=== PATIENT | female | born 1940 | race Caucasian/White ===

== ENCOUNTER 2024-06-12 10:47 | Emergency (ER) | payer OTHER, SELFPAY ==
[2024-06-12 11:06] VITALS: BP 115/69; PULSE 96; RESP 14; TEMP 36.3; O2SAT 95; BMI 35.2
--- NOTE | 2024-06-12 11:14 | DI.US.S_ITS ---
PROCEDURE: US PELVIC COMPLETE INDICATIONS: post menopause bleeding TECHNIQUE: Real-time scanning was performed of the pelvic organs, with image documentation. Additional endovaginal scanning was necessary due to incomplete visualization of the adnexal and endometrial structures by transabdominal scanning. COMPARISON: None. FINDINGS: Uterus: Uterus is anteverted and normal in size at 7.6 x 5.7 x 4.7 cm. The myometrium is homogeneous. The endometrium measures 19 mm combined thickness. Cyril S vascular endometrial separate structure measures 2.5 x 2.7 x 1.7 cm. Additional right anterior intramural fibroid 2.1 x 1.8 x 1.7 cm. Trace endocervical fluid. Ovaries: Right ovary not visualized. Left ovary 2.6 x 2.0 x 1.7 cm. Volume 4.6 cc. Normal vascularity. Less than 12 follicles Other: No pathologic free abdominal or pelvic fluid. IMPRESSION: Endometrial thickening and postmenopausal bleeding. Advise endometrial biopsy. Possible endometrial polyp or mass lesion noted. Intramural uterine fibroid. Approved by: Wilfredo Medrano M.D. on 06/12/2024 at 12:37
--- NOTE | 2024-06-12 11:15 | DI.RAD.S_ITS ---
PROCEDURE: XR HIP W PEL IF DONE LT 2V INDICATIONS: hip pain TECHNIQUE: AP pelvis and lateral view of the hip acquired. COMPARISON: None. FINDINGS: Bones: Patient is status post left hip arthroplasty, with hardware components in expected positions. The hip joint appears congruent. The visualized bony structures appear intact. Soft tissues: Overlying postoperative changes are noted. No suspicious soft tissue densities. 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 No fracture or hardware failure. Moderate right hip arthritic changes. Approved by: Wilfredo Medrano M.D. on 06/12/2024 at 10:56
[2024-06-12 11:44] LABS: Add Manual Diff / Slide Review NO; Basophils Absolute Auto 0 /uL (0-100); Basophils Percent Auto 0.2 % (0-2); Eosinophils Absolute Auto 100 /uL (0-450); Hematocrit 44.8 % (36-46); Hemoglobin 15.3 g/dL (12.0-16.0); Lymphocytes Absolute Auto 900 /uL (1100-4500); Lymphocytes Percent Auto 12.9 % (25-40); Mean Corpuscular HGB Conc 34.2 % (30-36); Mean Corpuscular Hemoglobin 33.2 PG (26-34); Mean Corpuscular Volume 97.2 fL (80-100); Monocytes Absolute Auto 400 /uL (0-900); Monocytes Percent Auto 5.7 % (3-14); Neutrophils Absolute Auto 5700 /uL (1500-7000); Neutrophils Percent Auto 80.2 % (50-75); Platelet Count 170 X10^3/uL (150-400); Red Blood Cell Count 4.62 X10^6/uL (4.0-5.2); Red Cell Distribution Width 14.3 % (11.6-14.8); White Blood Cell Count 7.1 X10^3/uL (4.5-11.0)
[2024-06-12 11:51] LABS: INR 1.3 (0.9-1.3); Prothrombin Time 14.9 SECONDS (9.4-12.5)
[2024-06-12 11:53] LABS: PTT Partial Thromboplastin Tim 59 SECONDS (25.1-36.5)
[2024-06-12 11:54] LABS: Alanine Aminotransferase 28 IU/L (<35); Albumin 4.3 g/dL (3.5-5.0); Albumin Globulin Ratio 1.6 (1.0-2.8); Alkaline Phosphatase 67 U/L (38-126); Aspartate Aminotransferase 33 IU/L (14-36); BUN Creatinine Ratio 24.4 (6-22); Blood Urea Nitrogen 20 mg/dL (7-17); Calcium 9.5 mg/dL (8.4-10.2); Carbon Dioxide 30 mmol/L (22-32); Chloride 104 mmol/L (98-107); Estimated Glomerular Filt Rate > 60 mL/min (>60); Globulin 2.7 g/dL (1.7-4.1); Glucose 135 mg/dL (80-110); HEMOLYSIS 23 (0-50); Potassium 5.1 mmol/L (3.4-5.1); Sodium 140 mmol/L (137-145)
[2024-06-12 11:58] LABS: RBC Urine 10-30/HPF (0-5/HPF); Squamous Epithelial Cell Urine 10-30 /HPF (0-5/HPF); Urine Volume 10mL (spun); WBC Urine 1-5/HPF (0-5/HPF)
[2024-06-12 11:59] LABS: Bacteria Urine Moderate (10-30); Culture Indicated Urine Specimen Cultured
--- NOTE | 2024-06-12 13:09 | ED_ITS ---
HPI - Female Genitourinary General Chief complaint: Vaginal Bleeding Stated complaint: vaginal bleeding/backache Time Seen by Provider: 06/12/24 12:47 Source: patient Mode of arrival: Ambulatory History of Present Illness HPI Narrative: 84-year-old female with history of TIA for which she has been taking Pradaxa chronic anticoagulation for the last 5 years, traveling with from home [facility], has had vaginal spotting bleeding since yesterday, not soaking but frequently changing pads, about 6 pads since yesterday. No dizziness or weakness. No injury or trauma. No fevers or chills. No abdominal cramping or pain. No history of gynecologic cancers known. No recent gynecological instrumentation. Also has left hip pain, no specific fall injury recalled, history of remote left hip surgery noted. Related Data Allergies Allergy/AdvReac Type Severity Reaction Status Date / Time No Known Drug Allergies Allergy Verified 06/12/24 11:31 Review of Systems Review of Systems Narrative: see HPI Patient History alcohol intake frequency: holidays/special occasions only Substance Use Type: does not use Exam Narrative Exam Narrative: GENERAL: Well-developed patient, in mild distress. HEAD: Atraumatic. Normocephalic. EYES: Pupils equal round and reactive. Extraocular motions intact. No scleral icterus. No injection or drainage. ENT: Nose without bleeding, purulent drainage. Throat without erythema, tonsillar hypertrophy or exudate. Airway patent. NECK: Trachea midline. Non tender CARDIOVASCULAR: Regular rate and rhythm without murmurs, gallops, or rubs. RESPIRATORY: Clear to auscultation. Breath sounds equal bilaterally. No wheezes, rales, or rhonchi. GASTROINTESTINAL: Abdomen soft, non-tender, nondistended. EXTREMITIES: No edema or joint tenderness. No gross limb length discrepancy BACK: Nontender without deformity or crepitance. No flank tenderness. NEURO: AOx3. Grossly nonfocal motor functions SKIN: No rash or erythema of visible areas Initial Vital Signs Initial Vital Signs: Vital Signs Temperature 97.3 F L 06/12/24 11:06 Pulse Rate 96 H 06/12/24 11:06 Respiratory Rate 14 06/12/24 11:06 Blood Pressure 115/69 06/12/24 11:06 Pulse Oximetry 95 06/12/24 11:06 Oxygen Delivery Method Room Air 06/12/24 11:06 Course Orders Ordered: ED Orders 06/12/24 11:14 US pelvic complete Stat 06/12/24 11:15 XR hip w pel if done LT 2V Stat 06/12/24 11:20 Urine Culture Stat Urine Microscopic Stat 06/12/24 11:25 Complete Blood Count AUTO DIFF Stat Comprehensive Metabolic Panel Stat PTT Partial Thromboplastin Nathan Stat Prothrombin Time INR Stat Type and Screen Stat Vital Signs Vital signs: Vital Signs - 8 hr 06/12/24 11:06 Temperature 97.3 F L Pulse Rate 96 H Respiratory Rate 14 Blood Pressure 115/69 Pulse Oximetry 95 Oxygen Delivery Method Room Air MDM - Female Genitourinary Lab Data Attestation: I reviewed the patient's lab results. 06/12/24 11:25 06/12/24 11:25 Labs: Lab Results 06/12/24 06/12/24 Range/Units 11:20 11:25 WBC 7.1 (4.5-11.0) X10^3/uL RBC 4.62 (4.0-5.2) X10^6/uL Hgb 15.3 (12.0-16.0) g/dL Hct 44.8 (36-46) % MCV 97.2 (80-100) fL MCH 33.2 (26-34) PG MCHC 34.2 (30-36) % RDW 14.3 (11.6-14.8) % Plt Count 170 (150-400) X10^3/uL Neut % (Auto) 80.2 H (50-75) % Lymph % (Auto) 12.9 L (25-40) % Ogle % (Auto) 5.7 (3-14) % Eos % (Auto) 1.0 L (2-4) % Baso % (Auto) 0.2 (0-2) % Neut # (Auto) 5700 (7876-9735) /uL Lymph # (Auto) 900 L (7774-7267) /uL Ogle # (Auto) 400 (0-900) /uL Eos # (Auto) 100 (0-450) /uL Baso # (Auto) 0 (0-100) /uL PT 14.9 H (9.4-12.5) SECONDS INR 1.3 (0.9-1.3) APTT 59 H (25.1-36.5) SECONDS Sodium 140 (137-145) mmol/L Potassium 5.1 (3.4-5.1) mmol/L Chloride 104 (98-107) mmol/L Carbon Dioxide 30 (22-32) mmol/L BUN 20 H (7-17) mg/dL Creatinine 0.82 (0.52-1.04) mg/dL Estimated GFR > 60 (>60) mL/min BUN/Creatinine Ratio 24.4 H (6-22) Glucose 135 H (80-110) mg/dL Calcium 9.5 (8.4-10.2) mg/dL Total Bilirubin 1.0 (0.2-1.3) mg/dL AST 33 (14-36) IU/L ALT 28 (<35) IU/L Alkaline Phosphatase 67 (38-126) U/L Total Protein 7.0 (6.3-8.2) g/dL Albumin 4.3 (3.5-5.0) g/dL Globulin 2.7 (1.7-4.1) g/dL Albumin/Globulin Ratio 1.6 (1.0-2.8) Urine RBC 10-30/hpf H (0-5/HPF) Urine WBC 1-5/hpf (0-5/HPF) Ur Squamous Epith Cells 10-30 /hpf H (0-5/HPF) Urine Bacteria Moderate (10-30) H (None) Ur Culture Indicated? Specimen cultured Vol Urine Centrifuged 10ml (spun) Blood Type O Positive Antibody Screen Negative Urine Dip Bedside Urine Glucose Negative Bedside Urine Bilirubin - Negative Bedside Urine Ketone - Negative Urine Specific [place] 1.020 Bedside Urine Occult Blood +++ Bedside Urine pH 6.0 Bedside Urine Protein +/- 15 Bedside Urine Urobilinogen - Negative Bedside Urine Nitrite - Negative Bedside Urine Leukocytes + 70 Esterase Imaging Data Pelvic ultrasound: Radiologist's Impression: [address] [address] Ultrasound Report Signed Patient: Nadja Villar MR#: [id number] : 1940 Acct:[id number] Age/Sex: 84 / F Date of Service: 06/12/24 Loc: ED Accession Number: [id number] Procedure: US pelvic complete Ordering Provider: Jordin Owens MD PROCEDURE: US PELVIC COMPLETE INDICATIONS: post menopause bleeding TECHNIQUE: Real-time scanning was performed of the pelvic organs, with image documentation. Additional endovaginal scanning was necessary due to incomplete visualization of the adnexal and endometrial structures by transabdominal scanning. COMPARISON: None. FINDINGS: Uterus: Uterus is anteverted and normal in size at 7.6 x 5.7 x 4.7 cm. The myometrium is homogeneous. The endometrium measures 19 mm combined thickness. Cyril S vascular endometrial separate structure measures 2.5 x 2.7 x 1.7 cm. Additional right anterior intramural fibroid 2.1 x 1.8 x 1.7 cm. Trace endocervical fluid. Ovaries: Right ovary not visualized. Left ovary 2.6 x 2.0 x 1.7 cm. Volume 4.6 cc. Normal vascularity. Less than 12 follicles Other: No pathologic free abdominal or pelvic fluid. IMPRESSION: Endometrial thickening and postmenopausal bleeding. Advise endometrial biopsy. Possible endometrial polyp or mass lesion noted. Intramural uterine fibroid. Approved by: Wilfredo Medrano M.D. on 06/12/2024 at 12:37 Extremity x-ray #1: Radiologist's Impression: [place] [address] XRay Report Signed Patient: Nadja Villar MR#: [id number] : 1940 Acct:[id number] Age/Sex: 84 / F Date of Service: 06/12/24 Loc: ED Accession Number: [id number] Procedure: XR hip w pel if done LT 2V Ordering Provider: Jordin Owens MD PROCEDURE: XR HIP W PEL IF DONE LT 2V INDICATIONS: hip pain TECHNIQUE: AP pelvis and lateral view of the hip acquired. COMPARISON: None. FINDINGS: Bones: Patient is status post left hip arthroplasty, with hardware components in expected positions. The hip joint appears congruent. The visualized bony structures appear intact. Soft tissues: Overlying postoperative changes are noted. No suspicious soft tissue densities. 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 No fracture or hardware failure. Moderate right hip arthritic changes. Approved by: Wilfredo Medrano M.D. on 06/12/2024 at 10:56 MDM Narrative Medical decision making narrative: 84-year-old female with postmenopausal bleeding. Labs sent. Ultrasound pelvis requested. Also some left hip pain, prior replacement surgery, x-ray ordered from triage 1300, [employer] tech verbal report, she reports endometrial polyp 2.7 cm size, with increased vascularity. She also noted trace free fluid in the pelvis. Right anterior uterine fibroid 2.5 cm noted. Left ovary normal-appearing with good blood flow. Right ovary not seen. Endometrium not otherwise thickened besides the polypoid mass. X-ray left hip shows arthroplasty changes, well seated, no injury pattern. See radiology report. Case discussed with OB/Gynecology Dr. Clifton who is cross covering here for similar group as Dr. Garcia, feels the patient will likely need a hysteroscopy D&C procedure, but it is stable to have this scheduled as an outpatient at present, she practices out of town, but advises follow up in local women's clinic this Friday, phone number [phone]. We will really like to patient. Patient name and date of given to Dr. Clifton, so she can relayed to clinic personnel to facilitate close follow up on Friday if she was going to be staying in this area. Discharge Plan Departure Patient Disposition: Home Clinical Impression: Postmenopausal bleeding, Endometrial polyp, Uterine fibroid Instructions: Postmenopausal Bleeding Activity Restrictions/Additional Instructions: Chronic anticoagulation with Pradaxa due to history of TIA, recent vaginal spotting since yesterday, which is not normal in postmenopausal state. Ultrasound in the pelvis today showed small endometrial intrauterine polyp, also a small uterine fibroid in the wall, further investigation as an outpatient with gynecology. Contact information given for gynecology office, contact their office Friday. Return earlier to this/nearest emergency department for any change worsening symptoms or any concerns prior Case was presented on-call celery tier Dr. Clifton, who is just cross covering for now from out of town, she suggested calling the office of [facility] here with Dr. Mensah and Dr. Lora, their clinic information was provided, as Dr. Clifton actually practices in the [facility] area. Dr. Clifton believes that you needed to have a hysteroscopy dilation and curettage procedure, which could be scheduled locally, call office on Friday, . Return earlier to this/nearest emergency department for any change worsening symptoms or any concerns prior Referrals: Eliza Clifton MD [Physician] - Lisa Duran MD [Physician] - Ondina Gonzalez DO [Physician] - Stand Alone Forms: Patient Portal/API
[2024-06-12 13:25] VITALS: PULSE 89; O2SAT 97
[2024-06-12 13:26] VITALS: BP 120/71; PULSE 89; O2SAT 97
[2024-06-12 13:30] VITALS: PULSE 76; O2SAT 95
== END 2024-06-12 13:53 | disposition home or self-care (01) ==
PROVIDERS: Emergency Provider Emergency Medicine
DX: N84.0 Polyp of corpus uteri (principal); D25.9 Leiomyoma of uterus, unspecified; N95.0 Postmenopausal bleeding; M25.552 Pain in left hip
CPT/HCPCS: 36415; 73502; 76856; 80053; 81003; 81015; 85025; 85610; 85730; 86850; 86900; 86901; 87086; 99283; 99284